=== PATIENT | female | born 1960 | race Caucasian/White ===

== ENCOUNTER 2017-04-06 17:39 | Inpatient (IN) ==
--- NOTE | 2017-04-06 18:38 | Emergency Department Note ---
Arrival - Arrival Chief Complaint: Shortness of Breath Stated Complaint: TRANSFER FROM [facility] ED Nursing Triage Note: PT TRANSFERRED FROM [facility] FOR EVALUATION OF PLEURAL EFFUSION AND PNEUMONIA. PT WAS DIAGNOSED WITH PNEUMONIA ON SATURDAY AND GIVEN LEVAQUIN. PT REPORTS FEVER AND COUGH X 5 DAYS. Mode of Arrival: Stretcher Time Seen by Provider: 04/06/17 18:18 - History of Present Illness HPI Narrative: This is a 57-year-old white female with history of obstructive sleep apnea on CPAP, type 2 diabetes, hyperlipidemia, hypothyroidism who developed shaking chills and fever 1 week ago and saw her family physician where a chest x-ray revealed an infiltrate for which she was started on Levaquin but has not improved. She continues to have fever 101 202 with cough productive of green sputum but no shortness of breath. She went to the emergency department today where CT scan of the chest revealed bilateral pleural effusions bilateral consolidation and a small pericardial effusion. It is for this reason she was transferred to [facility] for admission and intravenous antibiotics Allergies/Adverse Reactions: Allergies Allergy/AdvReac Type Severity Reaction Status Date / Time No Known Allergies Allergy Verified 04/06/17 17:55 Review of System - Review of System Constitutional: Present: chills, fever Eyes: Absent: redness, vision change Head/Ears/Nose/Throat: Absent: epistaxis, nasal drainage Respiratory: Absent: respiratory distress, wheezing Cardiovascular: Absent: dyspnea on exertion, orthopnea Gastrointestinal: Absent: diarrhea, constipation, hematemesis, melena Genitourinary female: Absent: frequency, genital lesions Musculoskeletal: Absent: joint swelling, lower back pain, leg pain Skin: Absent: change in color, change in hair/nails Neurological: Absent: numbness, paresthesias, confusion Psychiatric: Absent: suicidal thoughts, homicidal thoughts Endocrine: Absent: heat intolerance, polydipsia, polyuria Hematological/Lymphatic: Absent: easy bruising, lymphadenopathy Allergic/Immunologic: Absent: urticaria, itchy eyes Medical,Surgical,& Family Hx - Social History Smoking Status: Never smoker Frequency of Alcohol Use: None Type of Drug Use: None Exam Vital Signs: Vital Signs Temperature 102 F H 04/06/17 17:39 Pulse Rate 85 04/06/17 17:39 Respiratory Rate 18 04/06/17 17:39 Blood Pressure 123/64 04/06/17 17:39 O2 Sat by Pulse Oximetry 97 04/06/17 17:39 - General Exam limited due to: ALOC - Head Head exam: Present: atraumatic, normocephalic - Eye Eye exam: Present: PERRL, EOMI - ENT ENT exam: Present: normal exam - Neck Neck exam: Present: normal inspection, full ROM - Chest Chest inspection: Present: normal inspection - Respiratory Respiratory exam: Present: rales - Cardiovascular Cardiovascular exam: Present: regular rate, normal rhythm - Abdominal Exam Abdominal exam: Present: soft, distention - Extremities Exam Extremities exam: Present: normal inspection, full ROM - Back Exam Back exam: Present: normal inspection, full ROM - Neurological Exam Neurological exam: Present: alert, oriented X3 - Psychiatric Psychiatric exam: Present: normal affect, normal mood - Skin Skin exam: Present: warm, dry Course Course Narrative: Because the patient has bilateral infiltrates ongoing fever and has failed outpatient antibiotic treatment it seems reasonable at patient should be admitted to the hospital for intravenous antibiotics. The case was discussed with the hospitalist agreed to admit the patient. Disposition Clinical Impression: Pneumonia Disposition: Still a Patient Additional Instructions: Because the patient has bilateral infiltrates ongoing fever and has failed outpatient antibiotic treatment it seems reasonable at patient should be admitted to the hospital for intravenous antibiotics. The case was discussed with the hospitalist agreed to admit the patient.
[2017-04-06] MEDS ORDERED: SODIUM CHLORIDE 0.9% 1,000 ML IV ONE (19:02)
--- NOTE | 2017-04-06 19:21 | Hospitalist History & Physical ---
Assessment and Plan (1) Pneumonia Status: Acute Assessment and plan: patient transfered from [facility]. Was hypotensive with fever and ct shows bilateral pneumonia. Failed outpatient treatment with levaquin. Started on zosyn 3.375 mg IV every 6 hours. Current Visit: Yes (2) Sepsis Status: Acute Assessment and plan: NS bolus, repeat lactic acid, blood cx times 2, zosyn Current Visit: Yes (3) Hypertension Status: Acute Assessment and plan: blood pressure low, ns bolus, hold blood pressure meds Current Visit: Yes (4) OTTONIEL (obstructive sleep apnea) Status: Acute Assessment and plan: cpap 9 cm at bedtime Current Visit: Yes (5) Hypothyroidism Status: Acute Assessment and plan: cont levothyroxine 100 mcg every day Current Visit: Yes (6) Diabetes Status: Acute Assessment and plan: ISC, hgb A1c, hold glucophage Current Visit: Yes History of Present Illness Chief complaint: SOB History of present illness: Ms. Guzman is a 57 year old female with history of diabetes, obstructive sleep apnea and hypertension report seen her doctor for fever and shortness of breath and was told that she had pneumonia. She had been recently started on Levaquin and is not improved. She presented to [place] emergency room it was seen by Dr. Moreno Arthur. Her white count was 10.8. They elected to send her here for admission. Chest CT showed bilateral pneumonia with bilateral pleural effusions. She sees Dr. Rivera and has had a recent echo and stress test all of which were normal. Lactic acid was not done in the emergency room and was not available on the [place] reports. I have given her a liter of fluids in the emergency room. Sepsis order sets were utilized. Allergies Allergy/AdvReac Type Severity Reaction Status Date / Time No Known Allergies Allergy Verified 04/06/17 17:55 Medical,Surgical,& Family Hx - Medical History Cardio: History of: Hypertension Psychological: History of: Depression Endocrine: History of: Diabetes Mellitus (IDDM), Thyroid Disorder Respiratory: History of: Obstructive Sleep Apnea Hematology: History of: Anemia - Surgical History Abdominal Surgeries: Surgical HX of: Cholecystectomy Reproductive Surgeries: Surgical HX of;: Hysterectomy, Tubal Ligation Additional Surgical History: Colostomy and reversal. - Family History Family History: Reports;: Family Cancer (Lung cancer), Family Diabetes Denies;: Family Heart Disease, Family Stroke - Social History Smoking Status: Never smoker Frequency of Alcohol Use: None Type of Drug Use: None Marital Status: Single Lives With:: Alone Functional capacity: independent ambulation - Constitutional Constitutional: Present: fatigue, fever(s). Absent: headache(s) - EENT Eyes: Absent: blurry vision, diplopia Ears: Absent: decreased hearing, ear discharge Nose, mouth and throat: Absent: headache(s), sore throat - Cardiovascular Cardiovascular: Present: chest pain at rest, dyspnea, dyspnea on exertion. Absent: edema - Respiratory Respiratory: Present: cough, dyspnea, dyspnea on exertion, snoring, change in phlegm color - Gastrointestinal Gastrointestinal: Absent: constipation, diarrhea, nausea, vomiting - Genitourinary Genitourinary: Absent: difficulty urinating, dysuria - Neurological Neurological: Absent: headache(s), syncope - Psychiatric Psychiatric: Present: depression. Absent: anxiety - Endocrine Endocrine: Present: fatigue, heat intolerance. Absent: cold intolerance - Hematologic/Lymphatic Hematologic/Lymphatic: Absent: easy bleeding, easy bruising Exam - Constitutional Vitals: Period Temp Pulse Resp BP Sys/Sullivan Pulse Ox Last 24 Hr 102 F 84-85 18-21 110-123/64-70 97-98 General appearance: mild distress, morbidly obese - Head Head exam: Present: normal inspection, normocephalic - Eye Eye exam: Present: EOMI. Absent: scleral icterus Pupils: Present: KIMBERLEE, normal accommodation - ENT ENT exam: Present: normal exam, normal external ear exam - Neck Neck exam: Absent: lymphadenopathy, thyromegaly - Respiratory Respiratory exam: Present: decreased breath sounds. Absent: rhonchi, wheezes - Cardiovascular Cardiovascular exam: Present: regular rate and rhythm. Absent: systolic murmur - GI/Abdominal GI/Abdominal exam: Present: normal bowel sounds, soft. Absent: tenderness - Extremities Exam Extremities exam: Present: normal inspection, normal capillary refill - Neurological Exam Neurological exam: Present: alert, oriented X3, CN II-XII intact, reflexes normal. Absent: motor sensory deficit - Psychiatric Psychiatric exam: Present: normal affect, normal mood - Skin Skin exam: Present: normal color, warm Results - Labs Labs: WBC 10.8, hemoglobin 10.3, platelets 291, glucose 135, BUN 10, creatinine 1, sodium 135, potassium 4.2, lactic acid 1.1, - Diagnostic Findings Procedure: CT - chest: report reviewed by me (Pericardial effusion 2.6 cm, bilateral pleural effusions, consolidation and bilateral lower lobes consistent with pneumonia)
[2017-04-06] MEDS ORDERED: GLUCAGON 1 MG VIAL IM PRN (20:03)
[2017-04-06] MEDS ORDERED: ACETAMINOPHEN 325 MG TABLET PO PRN (20:03)
[2017-04-06] MEDS ORDERED: ONDANSETRON 4 MG/2 ML VIAL IV PRN (20:03)
[2017-04-06] MEDS ORDERED: DEXTROSE 50% 25 GM/50 ML SYRINGE IV PRN (20:03)
[2017-04-06] MEDS: PIPERACILLIN/TAZOBACTAM 3,375 MG in SODIUM CHLORIDE 0.9% 100 ML IV SCH (21:30)
[2017-04-06] MEDS: ENOXAPARIN 40 MG/0.4 ML SYRINGE SUBCUT SCH (21:30)
[2017-04-06] MEDS: INSULIN LISPRO 100 UNIT/ML SUBCUT SCH (21:33)
[2017-04-06] MEDS: CITALOPRAM 20 MG TABLET PO SCH (22:04)
[2017-04-06] MEDS: ROSUVASTATIN 10 MG TABLET PO SCH (22:04)
[2017-04-06] MEDS: MONTELUKAST 10 MG TABLET PO SCH (22:04)
[2017-04-06] MEDS: ALBUTEROL 0.63 MG/3 ML NEB RESP TX SCH (23:23)
[2017-04-06 23:54] LABS: Free T4 (Free Thyroxine) 1.59 NG/DL (0.76-1.46); Magnesium 2.1 MG/DL (1.8-2.4); Thyroid Stimulating Hormone 2.64 uIU/ml (0.358-3.74)
[2017-04-07] MEDS: PIPERACILLIN/TAZOBACTAM 3,375 MG in SODIUM CHLORIDE 0.9% 100 ML IV SCH ×3 (04:09→21:09)
[2017-04-07] MEDS: ALBUTEROL 0.63 MG/3 ML NEB RESP TX SCH ×5 (04:15→20:31)
[2017-04-07 04:23] LABS: Basophils % 0.2 % (0.0-0.8); Eosinophils % 0.1 % (0.00-10.9); Hematocrit 27.8 VOL% (35.7-47.0); Hemoglobin 8.8 GM/DL (12.0-16.0); Immature Granulocytes % 0.6 %; Immature Granulocytes Absolute 0.05 #; Lymphocytes # 0.8 10*3/uL (1.4-4.0); Lymphocytes % 9.7 % (21.3-54.2); Mean Corpuscular HGB Conc 31.7 GM/DL (32-36); Mean Corpuscular Hemoglobin 29 PG (27-34); Mean Corpuscular Volume 90.6 FL (87-102); Mean Platelet Volume 10.3 FL (9.6-12.0); Monocytes # 0.9 10*3/uL (0.11-0.8); Monocytes % 10.5 % (1.7-12.7); Neutrophils # 6.6 10*3/uL (1.4-7.4); Neutrophils % 78.9 % (38.7-73.9); Platelet Count 245 T/CUMM (130-400); Red Blood Count 3.07 MC/CUMM (3.8-5.5); Red Cell Distribution Width 15.2 % (9.3-17.3); White Blood Count 8.4 T/CUMM (4-12)
[2017-04-07 04:56] LABS: Albumin 2.4 G/DL (3.4-5.0); Bilirubin,Total 0.5 MG/DL (0.2-1.0); Calcium 8.2 MG/DL (8.5-10.1); Osmolality,Calculated 278.7 MOS/KG (273-304); Potassium 4.1 MMOL/L (3.5-5.1); Total Protein 5.9 G/DL (6.4-8.3)
[2017-04-07] MEDS: LEVOTHYROXINE 100 MCG TABLET PO SCH (06:28)
[2017-04-07 08:34] LABS: Apearance,Urine Slightly Hazy (Clear); Bilirubin,Urine Negative (Negative); Blood, Urine Negative (Negative); Glucose,Urine (UA) 50 mg/dL (Negative); Ketones,Urine Negative (Negative); Mucus,Urine Occasional /LPF (Occasional); Nitrite,Urine Negative (Negative); Protein,Urine Negative; RBC,Urine 1 /HPF (0-4); Squamous Epithelial Cell,Urine Occasional /HPF (0-10); Urine Color Yellow (Yellow); Urine Urobilinogen < 2.0 EU/DL (0.2-1.0); WBC,Urine 10 /HPF (0-6)
[2017-04-07] MEDS: INSULIN LISPRO 100 UNIT/ML SUBCUT SCH ×4 (08:35→21:10)
[2017-04-07] MEDS: PANTOPRAZOLE 40 MG TABLET PO SCH (09:04)
[2017-04-07] MEDS: CETIRIZINE 10 MG TABLET PO SCH (09:04)
--- NOTE | 2017-04-07 16:06 | Hospitalist Progress Note ---
Hospitalist: Subjective Interval history: 57 year old female with history of diabetes, obstructive sleep apnea and hypertension report seen her doctor for fever and shortness of breath and was told that she had pneumonia. She had been recently started on Levaquin and is not improved. She presented to [place] emergency room it was seen by Dr. Moreno Arthur. Her white count was 10.8. They elected to send her here for admission. Chest CT reportedly at outside facility showed bilateral pneumonia with bilateral pleural effusions. Exam - Constitutional Vitals: Period Temp Pulse Resp BP Sys/Sullivan Pulse Ox Last 24 Hr 97.0 F-102 F 69-89 18-21 80-123/43-80 93-992 Exam: General: No Acute Distress HEENT: Normocephalic, atraumatic, Extra ocular movements intact Neck: Supple, No JVD Chest: Clear to auscultation B/L CV: S1 + S2 audible without murmur, gallop or rub Abd: soft, NT, Non-distended, BS + Ext: No edema Skin: No purpura, bruising or rash Rheumatologic: No Joint deformities Neurologic: Strength 5/5 all extremities, no gross sensory deficits Results - Labs CBC & BMP: 04/07/17 03:37 04/07/17 03:36 - Impressions Assessment and Plan (1) Pneumonia Status: Acute Assessment and plan: patient transfered from [facility]. Was hypotensive with fever and ct shows bilateral pneumonia. Failed outpatient treatment with levaquin. Started on zosyn 3.375 mg IV every 6 hours. We will check repeat chest x-ray Current Visit: Yes (2) Sepsis Status: Acute Assessment and plan: NS bolus, repeat lactic acid, blood cx times 2, zosyn Current Visit: Yes (3) Hypertension Status: Acute Assessment and plan: blood pressure low, ns bolus, hold blood pressure meds Current Visit: Yes (4) OTTONIEL (obstructive sleep apnea) Status: Acute Assessment and plan: cpap 9 cm at bedtime Current Visit: Yes (5) Hypothyroidism Status: Acute Assessment and plan: cont levothyroxine 100 mcg every day Current Visit: Yes (6) Diabetes Status: Acute Assessment and plan: ISC, hgb A1c, holding glucophage Current Visit: Yes
[2017-04-07 16:35] LABS: Hypochromasia 1+; Microcytosis 1+
--- NOTE | 2017-04-07 16:39 | XRay Report ---
Portable chest April 07, 2017 Indication: Difficulty breathing. Comparison images dated June 16, 2009 Findings: Heart size remains mildly enlarged. Low lung volumes with bibasilar atelectasis. Trace effusions cannot be entirely excluded. No acute osseous abnormalities. Impression: Bibasilar atelectasis. Trace effusions not excluded. Correlate with upright PA and lateral projection of clinically concerned PROCEDURE INTERPRETED AT [facility] DEPARTMENT OF RADIOLOGY Final Report Signed by: Gilberto Mendoza
[2017-04-07] MEDS: ROSUVASTATIN 10 MG TABLET PO SCH (17:45)
[2017-04-07] MEDS: ENOXAPARIN 40 MG/0.4 ML SYRINGE SUBCUT SCH (21:09)
[2017-04-07] MEDS: CITALOPRAM 20 MG TABLET PO SCH (21:10)
[2017-04-07] MEDS: DOXYCYCLINE HYCLATE 100 MG CAPSULE PO SCH (21:10)
[2017-04-07] MEDS: MONTELUKAST 10 MG TABLET PO SCH (21:10)
[2017-04-08] MEDS: ALBUTEROL 0.63 MG/3 ML NEB RESP TX SCH ×4 (00:09→11:20)
[2017-04-08] MEDS ORDERED: ALUMINUM/MAGNES/SIMETH MAX STR 30 ML UDCUP PO ONE (02:03)
[2017-04-08 03:23] LABS: Basophils % 0.3 % (0.0-0.8); Eosinophils # 0.1 10*3/uL (0.0-0.87); Eosinophils % 1.3 % (0.00-10.9); Hematocrit 28.4 VOL% (35.7-47.0); Immature Granulocytes % 0.4 %; Immature Granulocytes Absolute 0.03 #; Lymphocytes # 0.8 10*3/uL (1.4-4.0); Lymphocytes % 10.3 % (21.3-54.2); Mean Corpuscular HGB Conc 31.7 GM/DL (32-36); Mean Corpuscular Hemoglobin 29 PG (27-34); Mean Platelet Volume 10.6 FL (9.6-12.0); Monocytes # 0.6 10*3/uL (0.11-0.8); Neutrophils % 79.7 % (38.7-73.9); Platelet Count 251 T/CUMM (130-400); Red Blood Count 3.12 MC/CUMM (3.8-5.5); Red Cell Distribution Width 15.2 % (9.3-17.3); White Blood Count 7.5 T/CUMM (4-12)
[2017-04-08] MEDS: PIPERACILLIN/TAZOBACTAM 3,375 MG in SODIUM CHLORIDE 0.9% 100 ML IV SCH ×2 (05:30→13:45)
[2017-04-08] MEDS: LEVOTHYROXINE 100 MCG TABLET PO SCH (08:23)
[2017-04-08] MEDS: CETIRIZINE 10 MG TABLET PO SCH (08:23)
[2017-04-08] MEDS: DOXYCYCLINE HYCLATE 100 MG CAPSULE PO SCH (08:23)
[2017-04-08] MEDS: INSULIN LISPRO 100 UNIT/ML SUBCUT SCH ×2 (08:23→12:37)
[2017-04-08] MEDS: PANTOPRAZOLE 40 MG TABLET PO SCH (08:24)
--- NOTE | 2017-04-08 10:32 | Discharge Summary ---
Hospital Course - Hospital Course Hospital Course: This is a very pleasant 57-year-old female that presented to [facility] on April 06, 2017 as a transfer from [facility] for the further evaluation of pneumonia. The patient reported a medical history significant for obstructive sleep apnea, hyperlipidemia, hypothyroidism , asthma, and hypertension. Patient reported no surgical history significant for hysterectomy, tubal ligation, colostomy creation, and colostomy reversal. The patient reported the onset of symptoms 1 week prior to presentation. She she reported that she developed chills and fever prompting her to present to her primary care physician for further evaluation. She was seen by her primary care physician, told that she had pneumonia, and started on Levaquin. The patient reported that she took the Levaquin as directed however, her symptoms fail to improve. Her symptoms became very severe prompting her to present to the ED at [facility] for further evaluation. The patient was seen and assessed. At the time of ED presentation, the patient was febrile with a temperature recorded at 101.2. In addition, the patient was noted to have a productive cough with tenacious green sputum. CT scan was performed at [facility] which was significant for bilateral pleural effusions, bilateral consolidation, and the presence of a small pericardial effusion was noted. The patient was subsequently transferred to [facility] for further evaluation. The patient was assessed at the time of ED presentation at [facility]. The sepsis bundle was immediately initiated. Fluid rehydration, empiric antibiotics, inhaled bronchodilators, and intravenous corticosteroids were initiated. The patient's condition gradually improved. The patient's condition is stable. She has not experienced any significant overnight events. Today, we feel that she is indeed appropriate for discharge to follow-up with her primary care physician as indicated. The patient will be discharged on doxycycline 100 mg by mouth for 7 days. Discharge Plan - Discharge Medications No Action Losartan Potassium 25 mg PO BEDTIME levoFLOXacin [Levofloxacin] 500 mg PO DAILY Montelukast Tab [Singulair Tab] 10 mg PO BEDTIME Metformin HCl [Metformin HCl ER] 500 mg PO BID W/MEALS Esomeprazole Magnesium [Esomeprazole] 40 mg PO AC BREAKFAST Cetirizine HCl [Cetirizine Tab] 10 mg PO QAM Rosuvastatin [Crestor] 10 mg PO QPM Insulin Degludec [Tresiba Flextouch U-200] 116 units SUBCUT QPM Citalopram [CeleXA] 20 mg PO BEDTIME Levothyroxine Tab [Synthroid Tab] 100 mcg PO DAILY@0700 - Follow Up or Referral - Forms/Instructions Exam - Constitutional Vitals: Period Temp Pulse Resp BP Sys/Sullivan Pulse Ox Last 24 Hr 96.6 F-98.2 F 65-89 16-20 80-132/43-88 90-98 Discharge Results Procedures and tests throughout hospitalization: Pending Orders 04/06/17 22:22 Blood Culture Stat 04/07/17 Urine Culture Routine 04/07/17 06:30 Sputum Culture and Gram Stain Stat 04/09/17 04:00 Comp Blood Count Auto Diff IN AM Labs on day of discharge: Labs from last 24 hours 04/08/17 04/08/17 04/08/17 07:29 07:27 02:08 WBC 7.5 RBC 3.12 L Hgb 9.0 L Hct 28.4 L MCV 91.0 MCH 29 MCHC 31.7 L RDW 15.2 Plt Count 251 MPV 10.6 Neut % (Auto) 79.7 H Lymph % (Auto) 10.3 L [place] % (Auto) 8.0 Eos % (Auto) 1.3 Baso % (Auto) 0.3 Neut # (Auto) 6.0 Lymph # (Auto) 0.8 L [place] # (Auto) 0.6 Eos # (Auto) 0.1 Baso # (Auto) 0.0 Immature Gran % 0.4 Nucleated RBC % 0.0 Immature Gran # 0.03 Nucleated RBCs # 0.00 Immature Plt Fraction 0.0 Hypochromasia Microcytosis POC Glucose 171 H < 20 L* 04/07/17 04/07/17 04/07/17 20:04 15:41 11:38 WBC RBC Hgb Hct MCV MCH MCHC RDW Plt Count MPV Neut % (Auto) Lymph % (Auto) [place] % (Auto) Eos % (Auto) Baso % (Auto) Neut # (Auto) Lymph # (Auto) [place] # (Auto) Eos # (Auto) Baso # (Auto) Immature Gran % Nucleated RBC % Immature Gran # Nucleated RBCs # Immature Plt Fraction Hypochromasia Microcytosis POC Glucose 288 H 190 H 218 H 04/07/17 03:37 WBC RBC Hgb Hct MCV MCH MCHC RDW Plt Count MPV Neut % (Auto) Lymph % (Auto) [place] % (Auto) Eos % (Auto) Baso % (Auto) Neut # (Auto) Lymph # (Auto) [place] # (Auto) Eos # (Auto) Baso # (Auto) Immature Gran % Nucleated RBC % Immature Gran # Nucleated RBCs # Immature Plt Fraction Hypochromasia 1+ Microcytosis 1+ POC Glucose Preliminary micro results at discharge 04/06/17 22:22 Blood Culture - Preliminary Blood No growth at 1 day 04/06/17 22:22 Blood Culture - Preliminary Blood No growth at 1 day DS: Provider Date of admission: 04/06/17 19:03 Primary care physician: . No PCP Attending physician on admission: Kareen Rivera MD Discharging clinician: Zia Rico CNP
--- NOTE | 2017-04-08 11:18 | Discharge Summary ---
Hospital Course - Hospital Course Hospital Course: This is a very pleasant 57-year-old female that presented to [facility] on April 06, 2017 as a transfer from [facility] for the further evaluation of pneumonia. The patient reported a medical history significant for obstructive sleep apnea, hyperlipidemia, hypothyroidism , asthma, and hypertension. Patient reported no surgical history significant for hysterectomy, tubal ligation, colostomy creation, and colostomy reversal. The patient reported the onset of symptoms 1 week prior to presentation. She she reported that she developed chills and fever prompting her to present to her primary care physician for further evaluation. She was seen by her primary care physician, told that she had pneumonia, and started on Levaquin. The patient reported that she took the Levaquin as directed however, her symptoms fail to improve. Her symptoms became very severe prompting her to present to the ED at [facility] for further evaluation. The patient was seen and assessed. At the time of ED presentation, the patient was febrile with a temperature recorded at 101.2. In addition, the patient was noted to have a productive cough with tenacious green sputum. CT scan was performed at [facility] which was significant for bilateral pleural effusions, bilateral consolidation, and the presence of a small pericardial effusion was noted. The patient was subsequently transferred to [facility] for further evaluation. The patient was assessed at the time of ED presentation at [facility]. The sepsis bundle was immediately initiated. Fluid rehydration, empiric antibiotics, inhaled bronchodilators, and intravenous corticosteroids were initiated. The patient's condition gradually improved. The patient's condition is stable. She has not experienced any significant overnight events. Today, we feel that she is indeed appropriate for discharge to follow-up with her primary care physician as indicated. The patient will be discharged on doxycycline 100 mg by mouth for 7 days. Diagnosis - Discharge Diagnosis (1) Pneumonia Status: Resolved Discharge Plan - Discharge Data Condition at Discharge: Stable Discharge Diet: advance to your usual diet Activity: resume usual activities as tolerated Hygiene: no restrictions Weight Bearing at Discharge: full weight bearing Driving: no restrictions Contact your physician if you experience:: fever over 101, Shortness of breath - Discharge Medications New Doxycycline Hyclate Cap [Vibramycin Cap] 100 mg PO BID #14 capsule Continue Losartan Potassium 25 mg PO BEDTIME levoFLOXacin [Levofloxacin] 500 mg PO DAILY Montelukast Tab [Singulair Tab] 10 mg PO BEDTIME Metformin HCl [Metformin HCl ER] 500 mg PO BID W/MEALS Esomeprazole Magnesium [Esomeprazole] 40 mg PO AC BREAKFAST Cetirizine HCl [Cetirizine Tab] 10 mg PO QAM Rosuvastatin [Crestor] 10 mg PO QPM Insulin Degludec [Tresiba Flextouch U-200] 116 units SUBCUT QPM Citalopram [CeleXA] 20 mg PO BEDTIME Levothyroxine Tab [Synthroid Tab] 100 mcg PO DAILY@0700 - Follow Up or Referral - Forms/Instructions Exam - Constitutional Vitals: Period Temp Pulse Resp BP Sys/Sullivan Pulse Ox Last 24 Hr 96.6 F-98.0 F 65-89 16-20 100-132/52-88 90-98 Discharge Results Procedures and tests throughout hospitalization: Pending Orders 04/06/17 22:22 Blood Culture Stat 04/07/17 Urine Culture Routine 04/07/17 06:30 Sputum Culture and Gram Stain Stat 04/09/17 04:00 Comp Blood Count Auto Diff IN AM Labs on day of discharge: Labs from last 24 hours 04/08/17 04/08/17 04/08/17 07:29 07:27 02:08 WBC 7.5 RBC 3.12 L Hgb 9.0 L Hct 28.4 L MCV 91.0 MCH 29 MCHC 31.7 L RDW 15.2 Plt Count 251 MPV 10.6 Neut % (Auto) 79.7 H Lymph % (Auto) 10.3 L [place] % (Auto) 8.0 Eos % (Auto) 1.3 Baso % (Auto) 0.3 Neut # (Auto) 6.0 Lymph # (Auto) 0.8 L [place] # (Auto) 0.6 Eos # (Auto) 0.1 Baso # (Auto) 0.0 Immature Gran % 0.4 Nucleated RBC % 0.0 Immature Gran # 0.03 Nucleated RBCs # 0.00 Immature Plt Fraction 0.0 Hypochromasia Microcytosis POC Glucose 171 H < 20 L* 04/07/17 04/07/17 04/07/17 20:04 15:41 11:38 WBC RBC Hgb Hct MCV MCH MCHC RDW Plt Count MPV Neut % (Auto) Lymph % (Auto) [place] % (Auto) Eos % (Auto) Baso % (Auto) Neut # (Auto) Lymph # (Auto) [place] # (Auto) Eos # (Auto) Baso # (Auto) Immature Gran % Nucleated RBC % Immature Gran # Nucleated RBCs # Immature Plt Fraction Hypochromasia Microcytosis POC Glucose 288 H 190 H 218 H 04/07/17 03:37 WBC RBC Hgb Hct MCV MCH MCHC RDW Plt Count MPV Neut % (Auto) Lymph % (Auto) [place] % (Auto) Eos % (Auto) Baso % (Auto) Neut # (Auto) Lymph # (Auto) [place] # (Auto) Eos # (Auto) Baso # (Auto) Immature Gran % Nucleated RBC % Immature Gran # Nucleated RBCs # Immature Plt Fraction Hypochromasia 1+ Microcytosis 1+ POC Glucose Preliminary micro results at discharge 04/06/17 22:22 Blood Culture - Preliminary Blood No growth at 1 day 04/06/17 22:22 Blood Culture - Preliminary Blood No growth at 1 day DS: Provider Date of admission: 04/06/17 19:03 Primary care physician: . No PCP Attending physician on admission: Kareen Rivera MD Discharging clinician: Chucho Fung MD
[2017-04-08 12:20] VITALS: BP 131/62
[2017-04-08] MEDS ORDERED: ROSUVASTATIN 10 MG TABLET PO SCH (21:00)
--- NOTE | 2017-04-12 09:57 | Physician Query Form ---
CLICK EDIT DOCUMENT TO SELECT QUERY ANSWER --> OK --> SIGN Serina Monzon RN, CCDS Certified Clinical [employer] W) [phone] (f) [phone] [email or web address] PROVIDERS: Make your selection(s) from the choices in EACH section by typing an "x" and enter comments in the comment section. Please use your independent medical judgment in providing your response. This request does not imply that any particular answer is desired or expected. CLINICAL INDICATORS: (Providers should not edit this section) The below diagnosis was documented in the record, but is not consistently noted in subsequent documentation. The medical record indicates that the patient was admitted with pneumonia/ sepsis, Temp of 102#, Pulse of 85, Respirations of 18, BP of 123/64, normal Lactic Acid Level 1.6#, chill, shaking, (-) blood cultures, and the patient was placed on Antibiotics. Diagnosis: SEPSIS Please clarify the following: ( x) The above diagnosis was monitored, evaluated, and/or treated and is a confirmed diagnosis PLEASE list clinical indicators here: ____Fever, initial hypotension, source of sepsis: Pneumonia ( ) The above diagnosis was ruled out ( ) The above diagnosis is still a likely, suspected, probable diagnosis PLEASE list clinical indicators here: ( ) Other, please specify: ( ) Clinically unable to determine COMMENTS: PLEASE ALSO DOCUMENT RESPONSE IN PROGRESS NOTES AND/OR DISCHARGE SUMMARY Use of terms such as suspected, likely, or probable (associated with a specific diagnosis that is being evaluated, monitored, or treated as if it exists) are acceptable and can be restated in the discharge summary if not ruled out. MTDD
== END 2017-04-08 13:40 | disposition home or self-care (01) | DRG 720 ==
LOC: EDUNIT# → EDBD → N.ED 17:39 → N.EDINP 19:03 → SUATTDRO 19:03 → N.5E 19:43
PROVIDERS: ADMIT Internal Medicine; ATTEND Hospitalist